=== PATIENT | male | born 1955 | race Caucasian/White ===

== ENCOUNTER 2017-06-01 08:44 | Emergency (ER) | payer BC ==
[2017-06-01 09:49] LABS: Hematocrit 42 % (42-52); Hemoglobin 14.1 g/dl (14.0-18.0); Mean Corpuscular HGB Conc 34 g/dl (31-36); Mean Corpuscular Hemoglobin 32 pg (27-31); Mean Corpuscular Volume 95 fL (80-94); Mean Platelet Volume 7 um3 (7.4-10.4); Red Blood Count 4.42 10^6/ul (4.0-5.4); Red Cell Distribution Width 13 % (10.5-15); White Blood Count 13.7 10^3/ul (3.5-10.8)
[2017-06-01] MEDS ORDERED: NS 0.9% 1000 ML* 1,000 ML IV ONE (10:15)
[2017-06-01 10:18] LABS: Albumin 4.1 g/dL (3.2-5.2); BUN/Creatinine Ratio 14.3 (8-20); EGFR African American 107.9 (>60); EGFR Non-African American 83.9 (>60); Globulin 3.8 g/dL (2-4); Magnesium 2.2 mg/dL (1.9-2.7); Potassium 4.1 mmol/L (3.5-5.0); Total Bilirubin 0.4 mg/dL (0.2-1.0); Total Protein 7.9 g/dL (6.4-8.9)
[2017-06-01] MEDS ORDERED: Iohexol 300* (CONTRAST) 10 ML SDV IV ONE (10:41)
[2017-06-01 12:14] LABS: Urine Bacteria Absent (Absent); Urine Bilirubin Negative (Negative); Urine Glucose Negative (Negative); Urine Nitrite Negative (Negative)
--- NOTE | 2017-06-01 13:00 | RAD ---
INDICATION: Right lower quadrant pain. COMPARISON: There are no prior studies available for comparison. TECHNIQUE: A CT scan of the abdomen and pelvis was performed with intravenous and oral contrast following intravenous injection of 91 ml of Omnipaque 300 nonionic contrast. Contiguous axial sections were obtained from the lung bases through the symphysis pubis. Images were reconstructed in the coronal and sagittal planes. FINDINGS: There is a small calcified 5 mm nodule present in the left lower lobe most consistent with old granulomatous disease. The lung bases are otherwise clear. No pleural effusion is present. The liver and spleen are within normal limits in size without significant focal abnormality. No calcified gallstones are seen. The pancreas appears to be within normal limits in size. The kidneys and adrenal glands are normal in size. No hydronephrosis is seen. No significant focal renal abnormality is seen. The prostate gland is enlarged measuring 4.7 cm in transverse dimension. There is coarse calcification within the gland on the left side. On the right side along the inferior posterolateral lateral aspect of the gland there is a hypodense mass with peripheral rim enhancement measuring 2.4 cm in diameter. The abdominal aorta is normal in caliber. There is moderate soft and calcific plaque present. No significant enlarged retroperitoneal lymph nodes are seen. The stomach, small and large bowel appear nondistended. The appendix is within normal limits. There is suggestion of mild thickening of the wall of the descending and sigmoid colon consistent with either normal variation or mild colitis. No free intraperitoneal air or fluid is seen. No significant focal osseous abnormality is seen. IMPRESSION: 1. THERE IS A 2.4 CM HYPODENSE LESION WITH PERIPHERAL RIM ENHANCEMENT PRESENT WITHIN THE PROSTATE GLAND ON THE RIGHT SIDE CONSISTENT WITH EITHER A MASS OR LESS LIKELY AN ABSCESS. 2. SUGGESTION OF MILD THICKENING OF THE WALL OF THE DESCENDING AND SIGMOID COLON CONSISTENT WITH UPPER LIMITS OF NORMAL VARIATION VERSUS MILD COLITIS. 3. OLD GRANULOMATOUS DISEASE IN THE CHEST.
--- NOTE | 2017-06-01 13:27 | ED ---
Hafsa Isbell Alfonso, scribed for Stacie Faith MD on 06/01/17 at 1010 . Abdominal Pain/Male - HPI Summary HPI Summary: This patient is a 62 year old M presenting to [facility] with a chief complaint of RLQ pain since one week ago. The patient rates the pain 5/10 in severity. Pt states his symptoms were worse last week but have markedly improved this week. Pt states discomfort slightly increases with BM. No diarrhea. No blood/black. No changes with postion. No dysuria, hematuria. Pt states last week he felt lightheaded, had a fever, and decreased appetite. Patient denies N/V/D and constipation. No h/o similar PMHx of HTN. Patients medication reviewed this visit - History of Current Complaint Chief Complaint: EDAbdPain Stated Complaint: ABD PAIN Time Seen by Provider: 06/01/17 09:08 Hx Obtained From: Patient Onset/Duration: Sudden Onset, Lasting Weeks - 1, Still Present Timing: Constant Severity Initially: Moderate Severity Currently: Moderate Pain Intensity: 5 Pain Scale Used: 0-10 Numeric Location: Discrete At: RLQ Aggravating Factor(s): Other: - discomfort bowel movements Alleviating Factor(s): Nothing Associated Signs And Symptoms: Positive: Other - Patient reports lightheadedness (resolved), dizziness (resolved), fever (resolved), loss of appetite (food tastes bad), testicular pain (discomfort), and dysuria. Patient denies N/V/D and constipation. - Allergies/Home Medications Allergies/Adverse Reactions: Allergies Allergy/AdvReac Type Severity Reaction Status Date / Time No Known Allergies Allergy Verified 10/30/14 14:30 PMH/Surg Hx/FS Hx/Imm Hx Previously Healthy: Yes Endocrine/Hematology History: Denies: Hx Diabetes Cardiovascular History: Reports: Hx Hypertension - ON MEDICATION Denies: Hx Pacemaker/ICD History: Denies: Hx Renal Disease Sensory History: Denies: Hx Hearing Aid Psychiatric History: Denies: Hx Panic Disorder - Surgical History Surgery Procedure, Year, and Place: [place] [place] RIGHT KNEE MCL 35 YEARS- LEFT HAND FINGERS WERE SEVERED AND REATTACHED 25 YEARS AGO Infectious Disease History: No Infectious Disease History: Denies: Traveled Outside the [place] in Last 30 Days - Family History Known Family History: Positive: Cardiac Disease - Social History Occupation: Retired Lives: With Family - Alcohol Use: Occasionally Substance Use Type: Reports: None Hx Tobacco Use: Yes Smoking Status (MU): Light Every Day Tobacco Smoker Review of Systems Positive: Fever - resolved Eyes: Negative ENT: Negative Cardiovascular: Negative Respiratory: Negative Positive: Abdominal Pain - RLQ, Other - Positive loss of appetite (food tastes bad); negative constipation.. Negative: Vomiting, Diarrhea, Nausea Positive: no symptoms reported Musculoskeletal: Negative Skin: Negative Neurological: Other - Positive lightheadedness (resolved), dizziness (resolved) Psychological: Normal All Other Systems Reviewed And Are Negative: Yes Physical Exam Triage Information Reviewed: Yes Vital Signs On Initial Exam: Initial Vitals Temp Pulse Resp BP Pulse Ox 98.7 F 95 16 166/74 99 06/01/17 08:48 06/01/17 08:48 06/01/17 08:48 06/01/17 08:48 06/01/17 08:48 Vital Signs Reviewed: Yes Appearance: Positive: Well-Appearing, No Pain Distress, Well-Nourished Skin: Positive: Warm, Skin Color Reflects Adequate Perfusion, Dry Head/Face: Positive: Normal Head/Face Inspection Eyes: Positive: Normal, EOMI, OLIVERIO ENT: Positive: Normal ENT inspection, Hearing grossly normal, Pharynx normal, TMs normal Neck: Positive: Supple, Nontender, No Lymphadenopathy Respiratory/Lung Sounds: Positive: Clear to Auscultation, Breath Sounds Present Cardiovascular: Positive: Normal, RRR Abdomen Description: Positive: Nontender, No Organomegaly, Soft Bowel Sounds: Positive: Present Musculoskeletal: Positive: Normal Neurological: Positive: Normal, Sensory/Motor Intact, Alert, Oriented to Person Place, Time Psychiatric: Positive: Normal AVPU Assessment: Alert - [place] Coma Scale Best Eye Response: 4 - Spontaneous Best Motor Response: 6 - Obeys Commands Best Verbal Response: 5 - Oriented Coma Scale Total: 15 Diagnostics - Vital Signs Vital Signs Temp Pulse Resp BP Pulse Ox 06/01/17 09:02 97.9 F 73 10 102/60 100 06/01/17 08:48 98.7 F 95 16 166/74 99 - Laboratory Lab Results: Lab Results 06/01/17 Range/Units 09:41 WBC 13.7 H (3.5-10.8) 10^3/ul RBC 4.42 (4.0-5.4) 10^6/ul Hgb 14.1 (14.0-18.0) g/dl Hct 42 (42-52) % MCV 95 H (80-94) fL MCH 32 H (27-31) pg MCHC 34 (31-36) g/dl RDW 13 (10.5-15) % Plt Count 420 (150-450) 10^3/ul MPV 7 L (7.4-10.4) um3 Neut % (Auto) 73.3 (38-83) % Lymph % (Auto) 14.7 L (25-47) % Arthur % (Auto) 9.1 H (1-9) % Eos % (Auto) 2.1 (0-6) % Baso % (Auto) 0.8 (0-2) % Absolute Neuts (auto) 10.1 H (1.5-7.7) 10^3/ul Absolute Lymphs (auto) 2.0 (1.0-4.8) 10^3/ul Absolute Monos (auto) 1.3 H (0-0.8) 10^3/ul Absolute Eos (auto) 0.3 (0-0.6) 10^3/ul Absolute Basos (auto) 0.1 (0-0.2) 10^3/ul Absolute Nucleated RBC 0 10^3/ul Nucleated RBC % 0 Result Diagrams: 06/01/17 09:41 06/01/17 09:41 Lab Statement: Any lab studies that have been ordered have been reviewed, and results considered in the medical decision making process. - CT A/P CT Interpretation Completed By: Radiologist - 1. THERE IS A 2.4 CM HYPODENSE LESION WITH PERIPHERAL RIM ENHANCEMENT PRESENT WITHIN THE PROSTATE GLAND ON THE RIGHT SIDE CONSISTENT WITH EITHER A MASS OR LESS LIKELY AN ABSCESS. 2. SUGGESTION OF MILD THICKENING OF THE WALL OF THE DESCENDING AND SIGMOID COLON CONSISTENT WITH UPPER LIMITS OF NORMAL VARIATION VERSUS MILD COLITIS. 3. OLD GRANULOMATOUS DISEASE IN THE CHEST. Re-Evaluation - Re-Evaluation First Eval Change: Unchanged - Pt drank contrast Awaiting CT scan no needs. no analgesia , no nausea Second Eval Change: Unchanged - VSS reviewed labs and CT with pt Pt states he was started on Doxycycline yesterday for sinusitis Pt had PSA in 02/2017- was normal rectal : mild discomfort, no massess appreciated. Will change abx to levaquin urology referral return precautions discussed Pt comfortable and in agreement with plan Will change abx from Doxycycline to Levaquin referral to urology hydrate return precautions discussed pt comfortable and in agreement with plan Will change abx from Doxycycline to Levaquin referral to urology hydrate return precautions discussed pt comfortable and in agreement with plan Abdominal Pain Fem Course/Dx - Course Assessment/Plan: Pt presents with report of fever, lower abdominal discomfort, nauesa last week. Pt states sx markedly improved - still with mild lower abd discomfort - other symptoms resolved. will check labs, urine, CT reassess - Diagnoses Provider Diagnoses: Prostatitis, Abdominal pain Discharge - Discharge Plan Condition: Stable Disposition: HOME Prescriptions: Levofloxacin TAB* [Levaquin TAB*] 500 mg PO DAILY #10 tab Patient Education Materials: Prostatitis (ED) Referrals: Non Staff,Doctor [Primary Care Provider] - Kevin Anaya MD [Medical Doctor] - Additional Instructions: - Contact the urology office to schedule a follow-up appointment - Stop taking Doxycycline - start taking Levaquin as prescribed - Stay well hydrated - drink plenty of non-alcoholic, non-caffinated beverages - Contact your doctor or return for increased pain, vomiting, fevers, chills, or other questions or concerns The documentation as recorded by the Hafsa sullivan Alfonso accurately reflects the service I personally performed and the decisions made by me, Stacie Faith MD.
[2017-06-01 14:02] VITALS: BP 150/85
== END 2017-06-01 14:02 | disposition home or self-care (01) ==
LOC: ED 08:44
DX: N41.9 Inflammatory disease of prostate, unspecified (principal); R10.31 Right lower quadrant pain; R30.0 Dysuria; I10 Essential (primary) hypertension; F17.210 Nicotine dependence, cigarettes, uncomplicated
CPT/HCPCS: 36415; 74177; 80053; 81003; 81015; 83690; 83735; 85025; 87086; 99282; Q9967

== ENCOUNTER 2018-03-31 07:44 | Day surgery (SDC) | payer OTHER ==
--- NOTE | 2018-03-21 03:49 | HP ---
HISTORY AND PHYSICAL: DATE OF ADMISSION/SURGERY: 03/31/18 DATE OF OFFICE VISIT: 03/18/18 SURGEON: Jocelyne Linda MD * (DICTATED BY CHE TELLO) PROCEDURE: Left knee arthroscopy with partial medial meniscectomy, possible chondroplasty, possible synovectomy. CHIEF COMPLAINT: Left knee pain. HISTORY OF PRESENT ILLNESS: Mr. Cao is a 62-year-old gentleman with complaints of left hip pain. His pain is associated with clicking and catching in the knee and MRI confirms a medial meniscus tear. He has elected to proceed with surgery, which is scheduled for 03/31/[address] Linda. PAST MEDICAL HISTORY: Hypertension. PAST SURGICAL HISTORY: Bilateral knee arthroscopies with an ACL reconstruction on the left and left hand surgery. CURRENT MEDICATIONS: 1. Zolpidem tartrate 12.5 mg q.h.s. 2. Omeprazole 40 mg daily. 3. Lisinopril/hydrochlorothiazide 10/12.5 mg daily. ALLERGIES: To STATIN. FAMILY HISTORY: Denies. SOCIAL HISTORY: This 62-year-old gentleman lives with his . He smokes less than half a pack a day. He denies use of drugs. Uses occasional alcohol. REVIEW OF SYSTEMS: A complete 14-point review of systems was reviewed with the patient and was positive for a history of hepatitis, unknown type, back in the 70s; history of GERD. He denies a history of DVT, PE, or anesthesia problems. PHYSICAL EXAMINATION GENERAL: He is well developed, well nourished, in no acute distress. VITAL SIGNS: He is 5 feet 7 inches tall, weighs 150 pounds. His blood pressure 146/82 and his heart rate is 80. HEENT: Normocephalic, atraumatic. NECK: Supple. No palpable lymph nodes. PULMONARY: The lungs are clear to auscultation bilaterally. CARDIO: Regular rate and rhythm. Strong S1, S2. ABDOMEN: Soft, nontender, nondistended. MUSCULOSKELETAL: Left lower extremity, the skin is intact. There are no open wounds or abrasions. He has a znbh-ub-hjedwfoa joint effusion. Has positive Radha's. 10 to 120 degrees of flexion. There is a tender, painful, and easily visible screw head along the proximal medial tibia. 2+ dorsalis pedis pulses, intact sensation. His lower extremity muscle group strengths are intact at 5/5. NEUROLOGIC: He is alert and oriented x3. Cranial nerves II through XII are intact. ASSESSMENT AND PLAN: Mr. Cao is a 62-year-old gentleman, who complains of left knee pain secondary to a medial meniscus tear. He has failed conservative treatment and elected to proceed with left knee arthroscopy with partial medial meniscectomy, possible chondroplasty, possible synovectomy. The surgery is scheduled 03/31/[address] Linda discussed risks and benefits of the surgery at today's visit and all of his questions were answered. He will follow up with Dr. Linda 2 weeks after the surgery. CHE TELLO [id number]/CPS #: [id number] MTDD
[~2018-03-31 07:44] MED LIST: Buffered Lidocaine 0.9% SYRIN* 5 ML/SYR SYRINGE INTRADERM ONE; Dexamethasone IV* 4 MG/ML 1 ML (4 MG) IV SLOW PU ONE; Ondansetron ODT TAB* 4 MG PO ONE
[2018-03-31] MEDS ORDERED: Dexamethasone IV* 4 MG/ML 1 ML (4 MG) ONE (07:52)
[2018-03-31] MEDS ORDERED: ceFAZolin 2 GM PREMIX (*) 2 GM/50 ML BAG IVPB ONE (07:53)
[2018-03-31] MEDS ORDERED: Ondansetron ODT TAB* 4 MG ONE (07:53)
[2018-03-31] MEDS ORDERED: Propofol* 10 MG/ML 20 ML BTL IV PUSH ONE (08:07)
[2018-03-31] MEDS ORDERED: EPINEPHRINE 1 MG/ML 1 ML VIAL ONE ×2 (08:44→10:08)
[2018-03-31] MEDS ORDERED: Bupivacaine 0.5% SDV PF* 30ML VIAL ONE (08:44)
[2018-03-31] MEDS ORDERED: methylPREDNISolone ACETATE 80* 80 MG/ML 1 ML VIAL ONE (08:44)
[2018-03-31] MEDS ORDERED: Naloxone* 0.4 MG/ML 1 ML VIAL IV PRN ×2 (08:53→13:29)
[2018-03-31] MEDS ORDERED: fentaNYL* 50 MCG/ML 2 ML VIAL (100 MCG VIAL) IV PRN ×2 (08:53→13:29)
[2018-03-31] MEDS ORDERED: Ondansetron INJ* 2 MG/ML VIAL IV PRN ×2 (08:53→13:29)
[2018-03-31] MEDS ORDERED: DiMENhydriNATE IV* 50 MG/ML VIAL IV PUSH PRN ×2 (08:53→13:29)
[2018-03-31] MEDS ORDERED: oxyCODONE/Acetamin 5/325 MG* TAB PO PRN (08:53)
[2018-03-31] MEDS ORDERED: Midazolam* 1 MG/ML 5 ML VIAL (5 MG) ONE (08:57)
[2018-03-31] MEDS ORDERED: Ketorolac INJ* 30 MG/ML 1 ML VIAL ONE (08:58)
[2018-03-31] MEDS ORDERED: Lidocaine 2% PF * 5 ML VIAL ONE (09:28)
[2018-03-31] MEDS ORDERED: Chloroprocaine 2%* 20 ML VIAL ONE (09:40)
[2018-03-31 12:34] VITALS: BP 150/79
[2018-03-31] MEDS ORDERED: HYDROmorphone INJ* 1 MG/ML CARPUJECT SYRINGE IV PRN (13:29)
--- NOTE | 2018-03-31 14:17 | RAD ---
INDICATION: Left knee arthroscopic removal of hardware, M25.562 COMPARISONS: February 16, 2018 TECHNIQUE: Fluoroscopy was provided for a surgical procedure. Total fluoroscopy time is: 7 seconds FINDINGS: Spot images are submitted of the proximal tibia and fibula. IMPRESSION: FLUOROSCOPY WAS PROVIDED FOR A SURGICAL PROCEDURE CPT II Codes: G9500
--- NOTE | 2018-04-01 15:24 | OP ---
OPERATIVE REPORT: DATE OF OPERATION: 03/31/18 DATE OF : 51 SURGEON: Jocelyne Linda MD. PROFESSOR OF FLORICULTURE: CHE Lee. Ms. Munson did help throughout the procedure with preparation of the leg, wound retraction, manipul ation of the knee and wound closure. ANESTHESIOLOGIST: Dr. Dia. ANESTHESIA: General. PRE-OP DIAGNOSES: 1. Left knee medial meniscus tear, osteoarthritis. 2. Left knee painful tibial hardware. POST-OP DIAGNOSES: 1. Left knee bucket displaced tear of the medial meniscus, anterior synovitis, grade 3 and 4 Outerbr idge cartilage changes in the medial compartment. 2. Painful tibial hardware. OPERATIVE PROCEDURE: 1. Left knee arthroscopy with partial medial meniscectomy and anterior synovec tereso. 2. Left tibial painful screw removal. ESTIMATED BLOOD LOSS: Less than 25 cc. COMPLICATIONS: None. SPECIMENS: Tibial screw removed sent to pathology. BRIEF HISTORY/INDICATIONS: Mr. Cao is a 62-year-old gentleman with an old workman's comp inj ury to the left knee. He started having increased pain and mechanical symptoms in the knee 2 months ago. He had also developed around the permanent tibial screw head. Due to his continued pain and me chanical symptoms, he elected to undergo left knee arthroscopy with possible meniscectomy, possible s ynovectomy, possible chondroplasty and removal of the painful tibial screw. Informed consent was obta ined from the patient who again understood the risks of the procedure included but were not limited t o bleeding, infection, damage to nearby structures, continued pain, need for further surgery, failure to remove the hardware, fracture around the hardware, retear of the meniscus, continued arthritic pa in, need for further surgery, stroke, heart attack, blood clot and . He wished to proceed. INTRAOPERATIVE FINDINGS: Intraoperatively, the patient had a tibial screw which was removed without difficulty. He had a bucket handle displaced tear of the medial meniscus in the white red zone. He had a large amount of anterior synovitis. His ACL graft appeared to be intact, although loose. He h ad grade 3 and 4 Outerbridge cartilage changes in the medial compartment, grade 2 and 3 Outerbridge c artilage changes in the patellofemoral and lateral compartment. DESCRIPTION OF PROCEDURE: Mr. Cao was identified in the preanesthesia unit. His left lower extremity was marked as the correct operative side. Informed consent was signed and placed in the art. The patient was taken to the operating room and placed under general anesthesia. The left lowe r extremity was prepped and draped in the usual sterile fashion. Preop time-out was made to correctl y identify the patient's side and site. Appropriate perioperative antibiotics were given within 1 ho ur of incision. A 0.5-cm incision was made over the prominent screw head of the tibial shaft. Electrocautery was used to dissect down to the screw head. Any fibrous tissue was removed from around the screw head. Usin g multiple different screwdrivers, we did attempt to remove the screw. Once the correct screwdriver was found, it was difficult to back out the screw. Therefore needle-nose pliers were used to apply p ressure as the screw was carefully removed. A curette was used to clear any debris from the screw ho le. This area was irrigated. A 2-0 Vicryl in running nylon suture was used to closed the incision. Next attention was turned to the knee joint arthroscopy. A 0.5-cm lateral portal incision was made w ith a 15 blade and carried down through the capsule. Trocar was introduced. As soon as the light an d water source were turned on, there was immediate visualization of the suprapatellar pouch. A tour of the knee joint was performed. Suprapatellar pouch showed no obvious abnormality. Patellofemoral compartment had some grade 2 and 3 Outerbridge cartilage changes. Medial compartment had no loose ti dy or plica. Medial compartment had an anteriorly displaced bucket handle type tear of the medial me niscus, also a large amount of anterior synovitis. There were grade 3 and 4 outer bridge cartilage c hanges of the medial joint compartment with exposed chondral bone along the medial femoral condyle. The knee was placed in a [id number] position and there was no obvious lateral meniscal tear. The re were grade 2 and 3 Outerbridge cartilage changes along the lateral compartment. Under direct visualization, a medial portal incision was made with a 15 blade. A probe was introduce d and a second tour of the knee joint was performed. No additional findings were noted. A shaver an d radiofrequency ablation wand were first used to perform an anterior synovectomy. Inflamed soft tis phan were carefully removed from the anterior joint line. Next a shaver and straight biter were first used to perform a partial medial meniscectomy until a smooth border of the medial meniscus was obtai susan. This was in the red-white zone. The bucket-handle type tear looked to be quite chronic. Furth er probing of the medial meniscus showed no additional tears or displaced fragments. There was a lar ge area along the medial femoral condyle with abraded cartilage where there was exposed subchondral b one, probably some meniscus tear. The knee was copiously irrigated with sterile saline. All instrume nts were removed. The incisions were closed using interrupted nylon sutures. Intraarticular injecti on of 80 mg of Depo-Medrol and 6 cc of 0.25% Marcaine was placed in the knee joint. The patient's in cisions were covered with Xeroform, 4x4s and Webril. Rebel wrap and cold pack were placed over this. The patient's anesthesia was reversed without difficulty and he was taken to the PACU in stable condi tion. Intended weightbearing will be weightbearing as tolerated. Intended DVT prophylaxis will be as pirin. He will follow up in 2 weeks for suture removal. [id number]/[facility] #: [id number]
== END 2018-03-31 12:36 | disposition home or self-care (01) ==
LOC: OR 07:44
PROVIDERS: ATTEND Orthopaedic Surgery Adult Reconstructive Orthopaedic Surgery
DX: S83.212A Bucket-handle tear of medial meniscus, current injury, left knee, initial encounter (principal); T84.84XA Pain due to internal orthopedic prosthetic devices, implants and grafts, initial encounter; M17.12 Unilateral primary osteoarthritis, left knee; I10 Essential (primary) hypertension; F17.210 Nicotine dependence, cigarettes, uncomplicated; M65.862 Other synovitis and tenosynovitis, left lower leg; M94.8X6 Other specified disorders of cartilage, lower leg; X58.XXXA Exposure to other specified factors, initial encounter
CPT/HCPCS: 76000; 88300; A9270-GY; J0690; J1040; J1100; J1885; J2250; J2400; J2704